=== PATIENT | female | born 1990 | race Caucasian/White ===

== ENCOUNTER 2017-10-14 13:41 | Emergency (ER) | payer BC, OTHER ==
[~2017-10-14] VITALS: Ht 172.7 cm; Wt 65.3 kg
--- OUTSIDE RECORDS SUMMARY | 2017-10-14 13:58 | XMS REPORT ---
Author Author FARHAT ZALDIVAR [facility] Address Unknown Care Team Providers Care Manager Clinical Informatics Name Role Phone ZEN FARHAT Unavailable PROBLEMS Unknown Problems ALLERGIES Substance Reaction Event Type Date Status Biaxin Unknown Drug Allergy Jun, Active SOCIAL HISTORY Never Assessed PLAN OF CARE Activity Details Follow Up prn Reason:O&R #30, 1 HOUR VITAL SIGNS Blood pressure systolic 119 mmHg 2016-07-06 Blood pressure diastolic 62 mmHg 2016-07-06 MEDICATIONS No Known Medications RESULTS No Results PROCEDURES Procedure Date Ordered Result Body Site LTD ORAL EVALUATION - PROBLEM FOCUS July 06, 2016 INTRAORL-PERIAPICAL 1 FILM [id number] July 06, 2016 BITEWING - SINGLE FILM July 06, 2016 IMMUNIZATIONS No Known Immunizations MEDICAL (GENERAL) HISTORY Type Description Date Medical History Deaf
[2017-10-14] MEDS ORDERED: CYCL10TA9 (14:14)
[2017-10-14] MEDS ORDERED: NITR100C10 (14:14)
[2017-10-14] MEDS ORDERED: BUSP10TA95 (14:14)
[2017-10-14] MEDS ORDERED: KETOROLAC 30 MG/ML VIAL IVP ONE (14:15)
[2017-10-14] MEDS ORDERED: NS IV 1000 ML 1,000 ML IV SCH (14:15)
[2017-10-14] MEDS ORDERED: ONDANSETRON 4 MG/2 ML (SDV) Z0FRAN IVP ONE (14:15)
--- NOTE | 2017-10-14 14:22 | ED Abdominal Pain ---
General Chief Complaint: -Female Stated Complaint: UTI, MEDS AND PAIN CAUSES VOMITTING Source of Information: Patient Exam Limitations: No Limitations History of Present Illness Date Seen by Provider: Oct 14, 2017 Time Seen by Provider: 14:20 Initial Comments this deaf 26-year-old female presents to ER with her deaf significant other tyshawn reportsof abdominal pain. She reports that she's had a urinary tract infection symptoms for about 2-3 weeks. She saw someone yesterday and got a prescription for antibiotics, external medication history shows this to be Macrobid. She's also been taking coyx-yhw-nlojmwa UTI relief medications which has turned her urine orange. However, despite medications she has some epigastric abdominal pain, nausea and vomiting as well as some suprapubic abdominal pain that started yesterday. he is otherwise healthy and has history of an appendectomy. Timing/Duration: Getting Worse Severity/Quality: Moderate Location: Suprapubic Radiation: No Radiation Activities at Onset: None Associated Symptoms: Nausea/Vomiting Allergies and Home Medications Allergies Coded Allergies: clarithromycin (Verified Allergy, Unknown, 10/14/17) Home Medications Hydrocodone/Acetaminophen 1 Each Tablet, 1 EACH PO Q4H PRN for PAIN-MODERATE TO SEVERE Prescribed by: JAYESH BRYANT on 10/14/17 1547 Ondansetron 8 Mg Tab.rapdis, 8 MG PO Q6H PRN for NAUSEA/VOMITING-1ST LINE Prescribed by: JAYESH BRYANT on 10/14/17 1547 Sulfamethoxazole/Trimethoprim 1 Each Tablet, 1 EACH PO BID Prescribed by: JAYESH BRYANT on 10/14/17 1547 Patient Home Medication List Home Medication List Reviewed: Yes Review of Systems Constitutional: see HPI EENTM: No Symptoms Reported Respiratory: No Symptoms Reported Cardiovascular: No Symptoms Reported Gastrointestinal: See HPI, Abdominal Pain, Nausea, Vomiting Genitourinary: No Symptoms Reported Musculoskeletal: no symptoms reported Skin: no symptoms reported Psychiatric/Neurological: No Symptoms Reported Endocrine: No Symptoms Reported Hematologic/Lymphatic: No Symptoms Reported Past [place]-Vnsyyr-[place] Hx Patient Social History Alcohol Use: Denies Use Recreational Drug Use: No Smoking Status: Current Someday Smoker 2nd Hand Smoke Exposure: Yes Recent Foreign Travel: No Contact w/Someone Who Travel: No Past Medical History Surgeries: Yes Appendectomy Respiratory: No Cardiac: No Neurological: No Genitourinary: No Gastrointestinal: No Musculoskeletal: No Endocrine: No Psychosocial: Yes Depression Integumentary: No Physical Exam Vital Signs Vital Signs - First Documented 10/14/17 14:00 Temp 98.3 Pulse 105 B/P (MAP) 113/82 (92) Pulse Ox 98 O2 Delivery Room Air Capillary Refill : Height/Weight/BMI Height: '" Weight: lbs. oz. kg; BMI Method: General Appearance: WD/WN, no apparent distress HEENT: PERRL/EOMI, normal ENT inspection Neck: non-tender, full range of motion Respiratory: normal breath sounds, no respiratory distress, no accessory muscle use Cardiovascular: tachycardia (110) Gastrointestinal: normal bowel sounds, soft, tenderness (suprapubic) Extremities: normal range of motion, non-tender Neurologic/Psychiatric: alert, normal mood/affect, oriented x 3 Skin: normal color, warm/dry Focused Exam Lactate Level 10/14/17 14:09: Lactic Acid Level 0.61 Lactic Acid Level Laboratory Tests Test 10/14/17 14:09 Lactic Acid Level 0.61 MMOL/L (0.50-2.00) Progress/Results/Core Measures Results/Orders Lab Results Laboratory Tests Test 10/14/17 14:09 10/14/17 14:15 Range/Units White Blood Count 6.7 4.3-11.0 10^3/uL Red Blood Count 4.43 4.35-5.85 10^6/uL Hemoglobin 13.6 11.5-16.0 G/DL Hematocrit 40 35-52 % Mean Corpuscular Volume 91 80-99 FL Mean Corpuscular Hemoglobin 31 25-34 PG Mean Corpuscular Hemoglobin Concent 34 32-36 G/DL Red Cell Distribution Width 12.7 10.0-14.5 % Platelet Count 209 130-400 10^3/uL Mean Platelet Volume 11.1 H 7.4-10.4 FL Neutrophils (%) (Auto) 63 42-75 % Lymphocytes (%) (Auto) 27 12-44 % Monocytes (%) (Auto) 8 0-12 % Eosinophils (%) (Auto) 2 0-10 % Basophils (%) (Auto) 1 0-10 % Neutrophils # (Auto) 4.2 1.8-7.8 X 10^3 Lymphocytes # (Auto) 1.8 1.0-4.0 X 10^3 Monocytes # (Auto) 0.5 0.0-1.0 X 10^3 Eosinophils # (Auto) 0.1 0.0-0.3 10^3/uL Basophils # (Auto) 0.0 0.0-0.1 10^3/uL Sodium Level 142 135-145 MMOL/L Potassium Level 4.4 3.6-5.0 MMOL/L Chloride Level 109 H 98-107 MMOL/L Carbon Dioxide Level 25 21-32 MMOL/L Anion Gap 8 5-14 MMOL/L Blood Urea Nitrogen 20 H 7-18 MG/DL Creatinine 0.73 0.60-1.30 MG/DL Estimat Glomerular Filtration Rate > 60 BUN/Creatinine Ratio 27 Glucose Level 90 70-105 MG/DL Lactic Acid Level 0.61 0.50-2.00 MMOL/L Calcium Level 9.3 8.5-10.1 MG/DL Total Bilirubin 0.4 0.1-1.0 MG/DL Aspartate Amino Transf (AST/SGOT) 21 5-34 U/L Alanine Aminotransferase (ALT/SGPT) 23 0-55 U/L Alkaline Phosphatase 49 40-136 U/L Total Protein 7.2 6.4-8.2 GM/DL Albumin 4.6 H 3.2-4.5 GM/DL Lipase 10 8-78 U/L Urine Color OTHER H Urine Clarity CLEAR Urine pH 5 5-9 Urine Specific [place] 1.015 L 1.016-1.022 Urine Protein 1+ H NEGATIVE Urine Glucose (UA) NEGATIVE NEGATIVE Urine Ketones NEGATIVE NEGATIVE Urine Nitrite POSITIVE H NEGATIVE Urine Bilirubin 2+ H NEGATIVE Urine Urobilinogen 4 H NORMAL MG/DL Urine Leukocyte Esterase NEGATIVE NEGATIVE Urine RBC (Auto) NEGATIVE NEGATIVE Urine RBC NONE /HPF Urine WBC NONE /HPF Urine Crystals NONE /LPF Urine Bacteria FEW H /HPF Urine Casts NONE /LPF Urine Mucus NEGATIVE /LPF Urine Culture Indicated NO My Orders Orders - JAYESH BRYANT APRN Cbc With Automated Diff (10/14/17 14:10) Comprehensive Metabolic Panel (10/14/17 14:10) Lipase (10/14/17 14:10) Ua Culture If Indicated (10/14/17 14:10) Urine Bedside (10/14/17 14:10) Iv Heplock-Insert (Order) (10/14/17 14:10) Blood Culture (10/14/17 14:10) Lactic Acid Analyzer (10/14/17 14:10) Ns Iv 1000 Ml (Sodium Chloride 0.9%) (10/14/17 14:15) Ketorolac Injection (Toradol Injection) (10/14/17 14:15) Ondansetron Injection (Zofran Injectio (10/14/17 14:15) Blood Culture (10/14/17 14:37) Ceftriaxone Injection (Rocephin Injectio (10/14/17 15:00) Fentanyl Injection (Sublimaze Injection (10/14/17 15:15) Ct Abdomen/Pelvis W (10/14/17 15:02) Iohexol Injection (Omnipaque 350 Mg/Ml 1 (10/14/17 15:15) Ns (Ivpb) (Sodium Chloride 0.9%) (10/14/17 15:15) Pharmacy Communication (Pharmacy Communi (10/14/17 15:04) Medications Given in ED Current Medications Medications Dose Ordered Sig/Yazan Route Start Time Stop Time Status Last Admin Dose Admin Ceftriaxone Sodium 1000 mg/ Sodium Chloride 50 ml @ 100 mls/hr ONCE ONCE IV 10/14/17 15:00 10/14/17 15:29 DC 10/14/17 15:37 100 MLS/HR Fentanyl Citrate 50 mcg ONCE ONCE IVP 10/14/17 15:15 10/14/17 15:16 DC 10/14/17 15:08 50 MCG Iohexol 100 ml ONCE ONCE IV 10/14/17 15:15 10/14/17 15:16 DC 10/14/17 15:34 100 ML Ketorolac Tromethamine 30 mg ONCE ONCE IVP 10/14/17 14:15 10/14/17 14:16 DC 10/14/17 14:29 30 MG Ondansetron HCl 8 mg ONCE ONCE IVP 10/14/17 14:15 10/14/17 14:16 DC 10/14/17 14:28 8 MG Sodium Chloride 250 ml ONCE ONCE IV 10/14/17 15:15 10/14/17 15:16 DC 10/14/17 15:34 80 ML Vital Signs/I&O 10/14/17 14:00 Temp 98.3 Pulse 105 B/P (MAP) 113/82 (92) Pulse Ox 98 O2 Delivery Room Air Departure Communication (Admissions) NAME: YADIRA BARBOSA REC#: [id number] PT STATUS: REG ER : 1990 PHYSICIAN: JAYESH BRYANT APRN ADMIT DATE: 10/14/17/ER Draft Date of Exam:10/14/17 CT ABDOMEN/PELVIS W PROCEDURE: CT abdomen and pelvis with contrast. TECHNIQUE: Multiple contiguous axial images were obtained through the abdomen and pelvis after administration of intravenous contrast. INDICATION: Urinary tract infection COMPARISON: There are no prior studies available for comparison. FINDINGS: By history, the appendix is surgically absent. There are a few fluid-filled segments of small bowel low in the pelvis. These are nonspecific in appearance. This finding could be secondary to a mild ileus, perhaps related to enteritis. There is a fair amount of fecal material throughout the colon. There is no pelvic mass or free fluid collection noted. The uterus and urinary bladder are grossly unremarkable. There is no evidence for nephrolithiasis or urolithiasis in the kidneys do not appear obstructed. There is no alteration of the renal parenchyma on the delayed series that would suggest pyelonephritis. The liver, spleen, pancreas, adrenals, gallbladder, aorta and inferior vena cava are unremarkable for an acute. The stomach is partially filled with fluid and consequently difficult to assess. The lung bases are clear. The bone windows show no sign of a fracture or of a destructive lesion. IMPRESSION: 1. The fluid-filled segments of small bowel low in the pelvis are nonspecific but may be related to enteritis. Clinical followup is recommended. 2. There is no acute abnormality in the abdomen or pelvis otherwise. In particular, there is no sign of acute pyelonephritis. 3. There is a fair amount of fecal material throughout the colon. Dictated on workstation # [id number] Dict: 10/14/17 1537 Trans: 10/14/17 1614 [facility] [id number] Interpreted by: BYRON PETERSEN MD Electronically signed by: Impression Primary Impression: Urinary tract infection Disposition: 01 HOME, SELF-CARE Condition: Improved Departure-Patient Inst. Decision time for Depature: 15:44 Referrals: NO,LOCAL PHYSICIAN (PCP) Primary Care Physician Patient Instructions: Urinary Tract Infection, Adult (DC) Add. Discharge Instructions: . Start the new antibiotics tomorrow.The antibiotics that we gave 3 or IV today will last for 24 hours.Take ibuprofen and Tylenol for pain control. Take nausea medication as needed for nausea. In cases of severe pain, take the prescribed pain medication. Return to ER for fevers or any intolerable symptoms. You may stop the Macrobid antibiotics and start a new antibiotic tomorrow All discharge instructions reviewed with patient and/or family. Voiced understanding. Scripts Sulfamethoxazole/Trimethoprim (Bactrim Ds Tablet) 1 Each Tablet 1 EACH PO BID, #10 TAB . Prov: JAYESH BRYANT APRN 10/14/17 Ondansetron (Zofran Odt) 8 Mg Tab.rapdis 8 MG PO Q6H PRN for NAUSEA/VOMITING-1ST LINE, #10 TAB . Prov: JAYESH BRYANT APRN 10/14/17 Hydrocodone/Acetaminophen ([place] 5-325 Tablet) 1 Each Tablet 1 EACH PO Q4H PRN for PAIN-MODERATE TO SEVERE, #5 TAB Prov: JAYESH BRYANT APRN 10/14/17 JAYESH BRYANT APRN Oct 14, 2017 14:22
[2017-10-14 14:25] LABS: BILIRUBIN,URINE 2+ (NEGATIVE); CLARITY,URINE CLEAR; GLUCOSE, URINE (UA) NEGATIVE (NEGATIVE); KETONES,URINE NEGATIVE (NEGATIVE); LEUKOCYTE ESTERASE ,URINE NEGATIVE (NEGATIVE); NITRITE,URINE POSITIVE (NEGATIVE); PH,URINE 5 (5-9); PROTEIN,URINE 1+ (NEGATIVE); UROBILINOGEN,URINE 4 MG/DL (NORMAL)
[2017-10-14 14:26] LABS: BASOPHILS % (AUTO) 1 % (0-10); EOSINOPHILS # (AUTO) 0.1 10^3/uL (0.0-0.3); EOSINOPHILS % (AUTO) 2 % (0-10); HEMATOCRIT 40 % (35-52); HEMOGLOBIN 13.6 G/DL (11.5-16.0); LYMPHOCYTES # (AUTO) 1.8 X 10^3 (1.0-4.0); LYMPHOCYTES % (AUTO) 27 % (12-44); MEAN CORPUSCULAR HEMOGLOBIN 31 PG (25-34); MEAN CORPUSCULAR HGB CONC 34 G/DL (32-36); MEAN CORPUSCULAR VOLUME 91 FL (80-99); MEAN PLATELET VOLUME 11.1 FL (7.4-10.4); MONOCYTES # (AUTO) 0.5 X 10^3 (0.0-1.0); MONOCYTES % (AUTO) 8 % (0-12); NEUTROPHILS # (AUTO) 4.2 X 10^3 (1.8-7.8); NEUTROPHILS % (AUTO) 63 % (42-75); PLATELET COUNT 209 10^3/uL (130-400); RED BLOOD COUNT 4.43 10^6/uL (4.35-5.85); RED CELL DISTRIBUTION WIDTH 12.7 % (10.0-14.5); WHITE BLOOD COUNT 6.7 10^3/uL (4.3-11.0)
[2017-10-14 14:38] LABS: BACTERIA,URINE FEW /HPF; COLOR,URINE OTHER
[2017-10-14 14:42] LABS: ALANINE AMINOTRANSFERASE 23 U/L (0-55); ALBUMIN 4.6 GM/DL (3.2-4.5); ALKALINE PHOSPHATASE 49 U/L (40-136); BILIRUBIN,TOTAL 0.4 MG/DL (0.1-1.0); BUN/CREATININE RATIO 27; CALCIUM 9.3 MG/DL (8.5-10.1); CARBON DIOXIDE 25 MMOL/L (21-32); CHLORIDE 109 MMOL/L (98-107); CREATININE SERUM 0.73 MG/DL (0.60-1.30); GFR ESTIMATED > 60; GLUCOSE 90 MG/DL (70-105); LIPASE 10 U/L (8-78); POTASSIUM 4.4 MMOL/L (3.6-5.0); SODIUM 142 MMOL/L (135-145); TOTAL PROTEIN 7.2 GM/DL (6.4-8.2)
[2017-10-14] MEDS ORDERED: cefTRIAXone INJECTION 1,000 MG in NS (IVPB) 50 ML IV ONE (15:00)
[2017-10-14] MEDS ORDERED: NS 250 ML (IVPB) BAG IV ONE (15:15)
[2017-10-14] MEDS ORDERED: fentaNYL INJECTION 100 MCG/2 ML AMP IVP ONE (15:15)
[2017-10-14] MEDS ORDERED: IOHEXOL 350 MG/ML 100 ML (OMNIPAQUE 350) VIAL IV ONE (15:15)
[2017-10-14] MEDS ORDERED: HYDR-757 PO (15:47)
[2017-10-14] MEDS ORDERED: SULF1TAB35 PO ×2 (15:47→16:46)
[2017-10-14] MEDS ORDERED: ONDA8TAB9 PO ×2 (15:47→16:46)
--- NOTE | 2017-10-14 16:15 | Diagnostic Imaging Report ---
PROCEDURE: CT abdomen and pelvis with contrast. TECHNIQUE: Multiple contiguous axial images were obtained through the abdomen and pelvis after administration of intravenous contrast. INDICATION: Urinary tract infection COMPARISON: There are no prior studies available for comparison. FINDINGS: By history, the appendix is surgically absent. There are a few fluid-filled segments of small bowel low in the pelvis. These are nonspecific in appearance. This finding could be secondary to a mild ileus, perhaps related to enteritis. There is a fair amount of fecal material throughout the colon. There is no pelvic mass or free fluid collection noted. The uterus and urinary bladder are grossly unremarkable. There is no evidence for nephrolithiasis or urolithiasis and the kidneys do not appear to be obstructed. There is no alteration of the renal parenchyma on the delayed series that would suggest pyelonephritis. The liver, spleen, pancreas, adrenals, gallbladder, aorta and inferior vena cava are unremarkable for an acute abnormality. The stomach is partially filled with fluid and consequently difficult to assess. The lung bases are clear. The bone windows show no sign of a fracture or of a destructive lesion. IMPRESSION: 1. The fluid-filled segments of small bowel low in the pelvis are nonspecific but may be related to a mild ileus secondary to enteritis. Clinical followup is recommended. 2. There is no acute abnormality in the abdomen or pelvis noted otherwise. In particular, there is no sign of acute pyelonephritis. 3. There is a fair amount of fecal material throughout the colon. Dictated by: Dictated on workstation # [id number]
[2017-10-14 16:45] VITALS: BP 113/82
== END 2017-10-14 16:55 | disposition home or self-care (01) ==
LOC: ER 13:54
DX: N39.0 Urinary tract infection, site not specified (principal); F17.200 Nicotine dependence, unspecified, uncomplicated; F32.9 Major depressive disorder, single episode, unspecified; Z90.49 Acquired absence of other specified parts of digestive tract; Z88.1 Allergy status to other antibiotic agents
CPT/HCPCS: 36415; 74177; 80053; 81000; 83605; 83690; 84703; 85025; 87040; 87088; 96361; 96365; 96375

== ENCOUNTER → 2019-02-01 | Outpatient (CLI) | payer BC ==
[~2019-02-01] MED LIST: BUSP10TA95; CYCL10TA9; HYDR-4226 PO; NITR100C10; ONDA8TAB9 PO; SULF1TAB35 PO
--- NOTE | 2019-02-01 15:10 | Diagnostic Imaging Report ---
INDICATION: Right hand pain after playing softball x2 weeks with continued pain TECHNIQUE: Three views of the right hand. CORRELATION STUDY: None FINDINGS: There is relatively nondisplaced, obliquely oriented fracture involving the proximal base of the 4th metacarpal. Alignment appears to be near-anatomic. Suggestion of soft tissue swelling at the base of the hand. IMPRESSION: 1. Nondisplaced, obliquely oriented fracture involving the proximal 4th metacarpal. Report given to nurse (Liana) at 3:09 02/01/2019/cb Dictated by: Dictated on workstation # [id number]
== END ==
LOC: RAD FS 14:30
PROVIDERS: ATTEND Family Medicine
DX: S62.344A Nondisplaced fracture of base of fourth metacarpal bone, right hand, initial encounter for closed fracture (principal); X58.XXXA Exposure to other specified factors, initial encounter; Y93.64 Activity, baseball
CPT/HCPCS: 73130

== ENCOUNTER → 2019-07-29 | Outpatient (CLI) | payer BC | LOC: LAB FS 17:26 | PROVIDERS: ATTEND Family Medicine | DX: R07.9 Chest pain, unspecified (principal) | CPT/HCPCS: 36415; 85379 ==

== ENCOUNTER → 2019-07-29 | Outpatient (CLI) | payer BC ==
--- NOTE | 2019-07-29 16:04 | Diagnostic Imaging Report ---
CLINICAL INDICATION: Patient states she is having pain on left upper side of chest and wraps around her back. EXAM: Chest x-ray PA and lateral views. COMPARISONS: None. FINDINGS: Lungs/pleura: Lungs are clear. There is no pneumothorax. There is no pleural effusion. Mediastinum: Unremarkable. Pulmonary vasculature: Unremarkable. Heart: Unremarkable. Bones/extrathoracic soft tissue: Unremarkable. IMPRESSION: There is no radiographic evidence of acute cardiopulmonary process. Dictated by: Dictated on workstation # [id number]
== END ==
LOC: RAD FS 15:38
PROVIDERS: ATTEND Family Medicine
DX: R07.9 Chest pain, unspecified (principal)
CPT/HCPCS: 71046